=== PATIENT | male | born 1990 | race Caucasian/White ===

== ENCOUNTER 2021-11-03 11:03 | Emergency (ER) | payer OTHER, SELFPAY ==
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
[2021-11-03 11:44] VITALS: BP 131/78; BP 132/88; PULSE 86; PULSE 87; RESP 18; TEMP 36.8; O2SAT 99; BMI 23.7
[2021-11-03 12:53] LABS: MANUAL DIFF FLAG NO
[2021-11-03 12:53] LABS: COVID-19 Test Negative (Negative); IDNOW Serial# 16C4AD1C
[2021-11-03 12:54] LABS: Basophils Percent Auto 0.4 % (0-2); Eosinophils Absolute Auto 0.1 X10*3/uL (0.0-0.4); Eosinophils Percent Auto 1.6 % (0-4); Hematocrit 45.8 % (42.0-52.0); Hemoglobin 15.6 g/dl (14.0-18.0); Imm Gran Abs Auto 0.03 X10*3/uL (0.00-0.03); Imm Gran Pct Auto 0.4 % (0.0-0.4); Lymphocytes Absolute Auto 1.3 X10*3/uL (1.2-4.9); Lymphocytes Percent Auto 16.5 % (20-40); Mean Corpuscular HGB Conc 34.1 g/dl (31.0-36.0); Mean Corpuscular Hemoglobin 31.1 pg (27.0-33.0); Mean Corpuscular Volume 91.4 fL (80.0-98.0); Mean Platelet Volume 11.2 fL (9.4-12.4); Monocytes Absolute Auto 0.7 X10*3/uL (0.1-1.2); Monocytes Percent Auto 9.7 % (2-11); Neutrophils Absolute Auto 5.5 x10*3/uL (2.0-8.3); Neutrophils Percent Auto 71.4 % (45-73); Platelet Count 208 X10*3/uL (160-400); Red Blood Count 5.01 X10*6/uL (4.60-5.80); Red Cell Distribution Width 12.2 % (11.0-16.0); White Blood Count 7.6 X10*3/uL (4.8-10.8)
[2021-11-03 12:54] LABS: Amphetamine Screen Urine Not Detected (Not Detect); Barbiturates, Urine Not Detected (Not Detect); Benzodiazepines Screen Urine Not Detected (Not Detect); Cannabinoid Screen Urine POSITIVE (Not Detect); Cocaine Screen Urine POSITIVE (Not Detect); Fentanyl, urine Not Detected (Not Detect); Opiate Screen Urine Not Detected (Not Detect); Phencyclidine Screen Urine Not Detected (Not Detect)
--- NOTE | 2021-11-03 13:19 | PC.NURSE ---
client overheard laughing to self, no one in near proximity
[2021-11-03 15:35] LABS: Ethanol < 10 mg/dL
[2021-11-03 15:38] LABS: Alanine Aminotransferase 21 U/L (0-40); Albumin Level 4.7 g/dL (3.5-5.0); Alkaline Phosphatase 74 U/L (39-117); Anion Gap 11 (12-20); Aspartate Amino Transferase 28 U/L (5-37); Bilirubin Total 0.4 mg/dL (0.0-1.0); Blood Urea Nitrogen 15 mg/dL (9-16); Calcium 9.4 mg/dL (8.4-10.2); Carbon Dioxide 25 mmol/L (22-29); Chloride 103 mmol/L (96-108); Creatinine Clr Calc Pharmacy 112.7; Estimated Glomerular Filt Rate > 60; Glucose Fasting 96 mg/dL (60-99); Potassium 4.3 mmol/L (3.3-5.1); Sodium 135 mmol/L (135-145); Total Protein 8.6 g/dL (6.5-8.0)
== END 2021-11-03 20:48 | disposition home or self-care (01) ==
PROVIDERS: Emergency Provider Emergency Medicine
DX: F43.20 Adjustment disorder, unspecified (principal); R46.2 Strange and inexplicable behavior; R45.6 Violent behavior; F19.10 Other psychoactive substance abuse, uncomplicated; Z20.822 Contact with and (suspected) exposure to COVID-19
CPT/HCPCS: 36415; 80053; 80307; 82077; 85025; 87635; 99284

== ENCOUNTER 2022-05-24 19:34 | Emergency (ER) | payer OTHER, SELFPAY ==
[2022-05-24 19:54] VITALS: BP 111/69; PULSE 99; RESP 20; TEMP 36.6; O2SAT 100; BMI 21.4
--- NOTE | 2022-05-24 19:57 | ED.GENADULT ---
HPI - General Adult General Chief complaint: Weakness <BRYCE Rowland - Last Filed: 05/24/22 19:58> Stated complaint: bilateral leg pain, dehydration <BRYCE Rowland - Last Filed: 05/24/22 19:58> Time Seen by Provider: 05/24/22 22:47 <BRYCE Rowland - Last Filed: 05/24/22 19:58> Source: patient <Robert Hooper MD - Last Filed: 05/25/22 00:48> Mode of arrival: ambulatory <Robert Hooper MD - Last Filed: 05/25/22 00:48> Limitations: no limitations <Robert Hooper MD - Last Filed: 05/25/22 00:48> History of Present Illness HPI narrative: patient history of cocaine abuse comes here for increased weakness and muscular pain for last few days patient was triaged and labs were done prior to my evaluation which shows normal labs including CPK patient was sleeping while examining not in any distress no swelling of extremities noticed no IVDA track juares no fever no chills <Robert Hooper MD - Last Filed: 05/25/22 00:48> Related Data Home medications: Home Medications Medication Instructions Recorded Confirmed No Known Home Meds 11/03/21 11/03/21 <BRYCE Rowland - Last Filed: 05/24/22 19:58> Allergies/adverse reactions: Allergies Allergy/AdvReac Type Severity Reaction Status Date / Time SEAFOOD Allergy Mild SWELLING Uncoded 12/27/19 16:25 <BRYCE Rowland - Last Filed: 05/24/22 19:58> Review of Systems Review of Systems: Yes all other systems are reviewed and are negative <Robert Hooper MD - Last Filed: 05/25/22 00:48> PMFSH Past Medical History Medical History: Medical History Bizarre behavior Substance abuse <BRYCE Rowland - Last Filed: 05/24/22 19:58> Social History Social History: Social History Advance Directives: No Advance Directives Information Provided: No <BRYCE Rowland - Last Filed: 05/24/22 19:58> Physical Exam ED Vital Signs: Vital Signs - 24 hr 05/24/22 19:54 05/24/22 21:42 05/24/22 23:27 Temperature 97.9 F 98.7 F 98.1 F Pulse Rate 99 92 70 Respiratory Rate 20 16 14 Blood Pressure 111/69 110/70 96/62 Pulse Oximetry 100 97 96 Oxygen Delivery Method Room Air Room Air Room Air BMI result Body Mass Index 21.4 <BRYCE Rowland - Last Filed: 05/24/22 19:58> Vital Signs - 24 hr 05/24/22 19:54 05/24/22 21:42 05/24/22 23:27 Temperature 97.9 F 98.7 F 98.1 F Pulse Rate 99 92 70 Respiratory Rate 20 16 14 Blood Pressure 111/69 110/70 96/62 Pulse Oximetry 100 97 96 Oxygen Delivery Method Room Air Room Air Room Air BMI result Body Mass Index 21.4 <Robert Hooper MD - Last Filed: 05/25/22 00:48> Appearance: Alert. Oriented X3. No acute distress. Eyes: PERRLA, No Nystagmus ENT: Pharynx normal. Oral Mucosa moist Neck: Normal inspection. Neck supple. CVS: Normal heart rate and rhythm. Pulses normal. Respiratory: No respiratory distress. Equal air entry bilateral, no wheezing/rales/rhonchi Abdomen: Soft and nontender. Bowel sounds are present, no mass palpable, no CVA tenderness Skin: Skin warm and dry. Normal skin color. Normal skin turgor. Extremities: No lower extremity edema. No calf tenderness Neuro: Oriented X 3. No motor deficit. No sensory deficit.No cerebellar signs , cranial nerves II-XII intact <Robert Hooper MD - Last Filed: 05/25/22 00:48> Course Course Course Narrative: RME - 31 yo male presents to the ER with LE weakness, blurred vision, dry mouth for the last 2 days. Feels dehydrated with decreased PO intake. Hx substance abuse but has not used due to feeling unwell. Basic labs and viral studies ordered. Steady gait in and out of triage. <BRYCE Rowland - Last Filed: 05/24/22 19:58> Medications Administered Discontinued Medications Generic Name Dose Route Start Last Admin Trade Name Freq PRN Reason Stop Dose Admin Ibuprofen 600 mg 05/24/22 23:40 05/24/22 23:52 Ibuprofen 600 Mg Tablet PO 05/24/22 23:41 Not Given ONCE ONE <BRYCE Rowland - Last Filed: 05/24/22 19:58> Medications Administered Discontinued Medications Generic Name Dose Route Start Last Admin Trade Name Freq PRN Reason Stop Dose Admin Ibuprofen 600 mg 05/24/22 23:40 05/24/22 23:52 Ibuprofen 600 Mg Tablet PO 05/24/22 23:41 Not Given ONCE ONE <Robert Hooper MD - Last Filed: 05/25/22 00:48> Medical Decision Making Medical Decision Making MDM Narrative: with nonspecific complaints CPK normal no signs of rhabdomyolysis labs are stable will discharge patient home advised to drink plenty of fluid take Advil/Tylenol for pain <Robert Hooper MD - Last Filed: 05/25/22 00:48> Lab Data [facility] Lab Attestation statement: I reviewed the patient's lab results. <Robert Hooper MD - Last Filed: 05/25/22 00:48> Result Diagrams: 05/24/22 21:07 05/24/22 21:07 <BRYCE Rowland - Last Filed: 05/24/22 19:58> Labs: Lab Results 05/24/22 05/24/22 05/24/22 Range/Units 21:07 21:07 21:07 WBC 11.1 H (4.8-10.8) X10*3/uL RBC 4.57 L (4.60-5.80) X10*6/uL Hgb 14.0 (14.0-18.0) g/dl Hct 41.7 L (42.0-52.0) % MCV 91.2 (80.0-98.0) fL MCH 30.6 (27.0-33.0) pg MCHC 33.6 (31.0-36.0) g/dl RDW 12.3 (11.0-16.0) % Plt Count 257 (160-400) X10*3/uL MPV 10.5 (9.4-12.4) fL Immature Gran % (Auto) 0.2 (0.0-0.4) % Neut % (Auto) 72.1 (45-73) % Lymph % (Auto) 16.9 L (20-40) % Lanier % (Auto) 8.2 (2-11) % Eos % (Auto) 2.1 (0-4) % Baso % (Auto) 0.5 (0-2) % Lymph # (Auto) 1.9 (1.2-4.9) X10*3/uL Lanier # (Auto) 0.9 (0.1-1.2) X10*3/uL Eos # (Auto) 0.2 (0.0-0.4) X10*3/uL Baso # (Auto) 0.1 (0.0-0.2) X10*3/uL Abs Immat Gran (auto) 0.02 (0.00-0.03) X10*3/uL Absolute Neuts (auto) 8.0 (2.0-8.3) x10*3/uL Absolute Nucleated RBC 0.000 (0.0-0.012) X10*3/uL Nucleated RBC % (auto) 0.0 (0.0-0.2) /100WBC Sodium 141 (135-145) mmol/L Potassium 4.0 (3.3-5.1) mmol/L Chloride 104 (96-108) mmol/L Carbon Dioxide 28 (22-29) mmol/L Anion Gap 13 (12-20) BUN 16 (9-16) mg/dL Creatinine 0.89 (0.5-1.4) mg/dL Estim Creat Clear Calc 112.9 Estimated GFR > 60 Random Glucose 76 (60-115) mg/dL Calcium 9.4 (8.4-10.2) mg/dL Magnesium 2.0 (1.6-2.6) mg/dL Total Bilirubin 0.3 (0.0-1.0) mg/dL Direct Bilirubin < 0.2 (0.0-0.5) mg/dL AST 23 (5-37) U/L ALT 20 (0-40) U/L Alkaline Phosphatase 70 (39-117) U/L Total Creatine Kinase 129 (38-174) U/L Total Protein 7.4 (6.5-8.0) g/dL Albumin 3.8 (3.5-5.0) g/dL COVID-19 (BRANDON) (Negative) COVID-19 Clin Com Influenza Type A (CHITRA) Negative (Negative) Influenza Type B (CHITRA) Negative (Negative) Influenza A & B Note See Note 05/24/22 Range/Units 21:07 WBC (4.8-10.8) X10*3/uL RBC (4.60-5.80) X10*6/uL Hgb (14.0-18.0) g/dl Hct (42.0-52.0) % MCV (80.0-98.0) fL MCH (27.0-33.0) pg MCHC (31.0-36.0) g/dl RDW (11.0-16.0) % Plt Count (160-400) X10*3/uL MPV (9.4-12.4) fL Immature Gran % (Auto) (0.0-0.4) % Neut % (Auto) (45-73) % Lymph % (Auto) (20-40) % Lanier % (Auto) (2-11) % Eos % (Auto) (0-4) % Baso % (Auto) (0-2) % Lymph # (Auto) (1.2-4.9) X10*3/uL Lanier # (Auto) (0.1-1.2) X10*3/uL Eos # (Auto) (0.0-0.4) X10*3/uL Baso # (Auto) (0.0-0.2) X10*3/uL Abs Immat Gran (auto) (0.00-0.03) X10*3/uL Absolute Neuts (auto) (2.0-8.3) x10*3/uL Absolute Nucleated RBC (0.0-0.012) X10*3/uL Nucleated RBC % (auto) (0.0-0.2) /100WBC Sodium (135-145) mmol/L Potassium (3.3-5.1) mmol/L Chloride (96-108) mmol/L Carbon Dioxide (22-29) mmol/L Anion Gap (12-20) BUN (9-16) mg/dL Creatinine (0.5-1.4) mg/dL Estim Creat Clear Calc Estimated GFR Random Glucose (60-115) mg/dL Calcium (8.4-10.2) mg/dL Magnesium (1.6-2.6) mg/dL Total Bilirubin (0.0-1.0) mg/dL Direct Bilirubin (0.0-0.5) mg/dL AST (5-37) U/L ALT (0-40) U/L Alkaline Phosphatase (39-117) U/L Total Creatine Kinase (38-174) U/L Total Protein (6.5-8.0) g/dL Albumin (3.5-5.0) g/dL COVID-19 (BRANDON) Negative (Negative) COVID-19 Clin Com See Note Influenza Type A (CHITRA) (Negative) Influenza Type B (CHITRA) (Negative) Influenza A & B Note <BRYCE Rowland - Last Filed: 05/24/22 19:58> Lab Results 05/24/22 05/24/22 05/24/22 Range/Units 21:07 21:07 21:07 WBC 11.1 H (4.8-10.8) X10*3/uL RBC 4.57 L (4.60-5.80) X10*6/uL Hgb 14.0 (14.0-18.0) g/dl Hct 41.7 L (42.0-52.0) % MCV 91.2 (80.0-98.0) fL MCH 30.6 (27.0-33.0) pg MCHC 33.6 (31.0-36.0) g/dl RDW 12.3 (11.0-16.0) % Plt Count 257 (160-400) X10*3/uL MPV 10.5 (9.4-12.4) fL Immature Gran % (Auto) 0.2 (0.0-0.4) % Neut % (Auto) 72.1 (45-73) % Lymph % (Auto) 16.9 L (20-40) % Lanier % (Auto) 8.2 (2-11) % Eos % (Auto) 2.1 (0-4) % Baso % (Auto) 0.5 (0-2) % Lymph # (Auto) 1.9 (1.2-4.9) X10*3/uL Lanier # (Auto) 0.9 (0.1-1.2) X10*3/uL Eos # (Auto) 0.2 (0.0-0.4) X10*3/uL Baso # (Auto) 0.1 (0.0-0.2) X10*3/uL Abs Immat Gran (auto) 0.02 (0.00-0.03) X10*3/uL Absolute Neuts (auto) 8.0 (2.0-8.3) x10*3/uL Absolute Nucleated RBC 0.000 (0.0-0.012) X10*3/uL Nucleated RBC % (auto) 0.0 (0.0-0.2) /100WBC Sodium 141 (135-145) mmol/L Potassium 4.0 (3.3-5.1) mmol/L Chloride 104 (96-108) mmol/L Carbon Dioxide 28 (22-29) mmol/L Anion Gap 13 (12-20) BUN 16 (9-16) mg/dL Creatinine 0.89 (0.5-1.4) mg/dL Estim Creat Clear Calc 112.9 Estimated GFR > 60 Random Glucose 76 (60-115) mg/dL Calcium 9.4 (8.4-10.2) mg/dL Magnesium 2.0 (1.6-2.6) mg/dL Total Bilirubin 0.3 (0.0-1.0) mg/dL Direct Bilirubin < 0.2 (0.0-0.5) mg/dL AST 23 (5-37) U/L ALT 20 (0-40) U/L Alkaline Phosphatase 70 (39-117) U/L Total Creatine Kinase 129 (38-174) U/L Total Protein 7.4 (6.5-8.0) g/dL Albumin 3.8 (3.5-5.0) g/dL COVID-19 (BRANDON) (Negative) COVID-19 Clin Com Influenza Type A (CHITRA) Negative (Negative) Influenza Type B (CHITRA) Negative (Negative) Influenza A & B Note See Note 05/24/22 Range/Units 21:07 WBC (4.8-10.8) X10*3/uL RBC (4.60-5.80) X10*6/uL Hgb (14.0-18.0) g/dl Hct (42.0-52.0) % MCV (80.0-98.0) fL MCH (27.0-33.0) pg MCHC (31.0-36.0) g/dl RDW (11.0-16.0) % Plt Count (160-400) X10*3/uL MPV (9.4-12.4) fL Immature Gran % (Auto) (0.0-0.4) % Neut % (Auto) (45-73) % Lymph % (Auto) (20-40) % Lanier % (Auto) (2-11) % Eos % (Auto) (0-4) % Baso % (Auto) (0-2) % Lymph # (Auto) (1.2-4.9) X10*3/uL Lanier # (Auto) (0.1-1.2) X10*3/uL Eos # (Auto) (0.0-0.4) X10*3/uL Baso # (Auto) (0.0-0.2) X10*3/uL Abs Immat Gran (auto) (0.00-0.03) X10*3/uL Absolute Neuts (auto) (2.0-8.3) x10*3/uL Absolute Nucleated RBC (0.0-0.012) X10*3/uL Nucleated RBC % (auto) (0.0-0.2) /100WBC Sodium (135-145) mmol/L Potassium (3.3-5.1) mmol/L Chloride (96-108) mmol/L Carbon Dioxide (22-29) mmol/L Anion Gap (12-20) BUN (9-16) mg/dL Creatinine (0.5-1.4) mg/dL Estim Creat Clear Calc Estimated GFR Random Glucose (60-115) mg/dL Calcium (8.4-10.2) mg/dL Magnesium (1.6-2.6) mg/dL Total Bilirubin (0.0-1.0) mg/dL Direct Bilirubin (0.0-0.5) mg/dL AST (5-37) U/L ALT (0-40) U/L Alkaline Phosphatase (39-117) U/L Total Creatine Kinase (38-174) U/L Total Protein (6.5-8.0) g/dL Albumin (3.5-5.0) g/dL COVID-19 (BRANDON) Negative (Negative) COVID-19 Clin Com See Note Influenza Type A (CHITRA) (Negative) Influenza Type B (CH[facility]RA) (Negative) Influenza A & B Note <Robert Hooper MD - Last Filed: 05/25/22 00:48> Discharge Plan Discharge Clinical Impression: Myalgia <BRYCE Rowland - Last Filed: 05/24/22 19:58> Patient Disposition: Home, Self-Care <BRYCE Rowland - Last Filed: 05/24/22 19:58> Instructions: Musculoskeletal Pain (ED) <BRYCE Rowland - Last Filed: 05/24/22 19:58> Additional Instructions: Tylenol/Motrin for pain drink plenty of fluids <BRYCE Rowland - Last Filed: 05/24/22 19:58> Prescriptions: No Action No Known Home Meds <BRYCE Rowland - Last Filed: 05/24/22 19:58> Interventions: ED Discharge Assessment Last Done: 05/24/22 23:52 <BRYCE Rowland - Last Filed: 05/24/22 19:58> Discharge Date/Time: 05/24/22 23:53 <BRYCE Rowland - Last Filed: 05/24/22 19:58>
--- NOTE | 2022-05-24 21:11 | MHC.EDTECH ---
pt blood drawn and covid and flu swab done and send to lab .
[2022-05-24 21:13] LABS: MANUAL DIFF FLAG NO
[2022-05-24 21:15] LABS: Basophils Absolute Auto 0.1 X10*3/uL (0.0-0.2); Basophils Percent Auto 0.5 % (0-2); Eosinophils Absolute Auto 0.2 X10*3/uL (0.0-0.4); Eosinophils Percent Auto 2.1 % (0-4); Hematocrit 41.7 % (42.0-52.0); Imm Gran Abs Auto 0.02 X10*3/uL (0.00-0.03); Imm Gran Pct Auto 0.2 % (0.0-0.4); Lymphocytes Absolute Auto 1.9 X10*3/uL (1.2-4.9); Lymphocytes Percent Auto 16.9 % (20-40); Mean Corpuscular HGB Conc 33.6 g/dl (31.0-36.0); Mean Corpuscular Hemoglobin 30.6 pg (27.0-33.0); Mean Corpuscular Volume 91.2 fL (80.0-98.0); Mean Platelet Volume 10.5 fL (9.4-12.4); Monocytes Absolute Auto 0.9 X10*3/uL (0.1-1.2); Monocytes Percent Auto 8.2 % (2-11); Neutrophils Percent Auto 72.1 % (45-73); Platelet Count 257 X10*3/uL (160-400); Red Blood Count 4.57 X10*6/uL (4.60-5.80); Red Cell Distribution Width 12.3 % (11.0-16.0); White Blood Count 11.1 X10*3/uL (4.8-10.8)
[2022-05-24 21:26] LABS: IDNOW Serial# BCCEAD1C; Influenza A Negative (Negative); Influenza B2 Negative (Negative)
[2022-05-24 21:27] LABS: COVID-19 Test Negative (Negative); IDNOW Serial# 16C4AD1C
[2022-05-24 21:32] LABS: Alanine Aminotransferase 20 U/L (0-40); Albumin Level 3.8 g/dL (3.5-5.0); Alkaline Phosphatase 70 U/L (39-117); Anion Gap 13 (12-20); Aspartate Amino Transferase 23 U/L (5-37); Bilirubin Direct < 0.2 mg/dL (0.0-0.5); Bilirubin Total 0.3 mg/dL (0.0-1.0); Blood Urea Nitrogen 16 mg/dL (9-16); Calcium 9.4 mg/dL (8.4-10.2); Carbon Dioxide 28 mmol/L (22-29); Chloride 104 mmol/L (96-108); Creatinine Clr Calc Pharmacy 112.9; Estimated Glomerular Filt Rate > 60; Glucose Random 76 mg/dL (60-115); Sodium 141 mmol/L (135-145); Total Protein 7.4 g/dL (6.5-8.0)
[2022-05-24 21:42] VITALS: BP 110/70; PULSE 92; RESP 16; TEMP 37.1; O2SAT 97
[2022-05-24 23:27] VITALS: BP 96/62; PULSE 70; RESP 14; TEMP 36.7; O2SAT 96
== END 2022-05-24 23:53 | disposition home or self-care (01) ==
PROVIDERS: Physician Assistant; Emergency Provider Internal Medicine; PCP Internal Medicine
DX: M79.10 Myalgia, unspecified site (principal); Z20.822 Contact with and (suspected) exposure to COVID-19; F14.10 Cocaine abuse, uncomplicated; F19.10 Other psychoactive substance abuse, uncomplicated
CPT/HCPCS: 36415; 80048; 80076; 82550; 83735; 85025; 87502; 87635; 99283; 99284

== ENCOUNTER 2023-01-29 04:02 | Emergency (ER) | payer OTHER, SELFPAY ==
[2023-01-29 04:04] VITALS: BP 143/86; PULSE 106; RESP 18; TEMP 36.6; O2SAT 99; BMI 41.7
--- OUTSIDE RECORDS SUMMARY | 2023-01-29 06:43 | XMS_ITS | Continuity of Care Document ---
Author Name Unknown Organization [facility] ter Address [address] [place] [id number]- Care Team Providers Care Pediatrician Name Role Phone Not on Staff, PCP Primary Care Physician Unavail able Encounter [facility] Date(s): 10/24/22 - 10/26/[address] [address]- Encounter Diagnosis Sotero(Final) - 10/24/22 Agitation(Final) - 10/26/22 Discharge Disposition: A-D/C Home Attending Physician: Anel Liu MD Admitting Physician: Anel Liu MD Referring Physician: Not on Staff, Referring MD Allergies, Adverse Reactions, Alerts Substance Reaction Severity Status Seafood Active Immunizations Given and Recorded Vaccine Date Status Refusal Reason influenza virus vaccine, inactivated 1 12/28/17 Gi jody influenza virus vaccine, inactivated 2 04/16/15 Gi jody pneumococcal 23-valent vaccine 12/28/17 Given pneumococcal 23-valent vaccine 12/07/11 Given Prevnar (oldterm) 04/16/15 Given tetanus/diphtheria/pertussis, acel(Tdap) 09/24/14 Recorded hepatitis B adult vaccine 11/10/11 Given Hepatitis B Vaccine (old term) 3 08/25/11 Given Hepatitis B Vaccine (old term) 04/21/11 Given 1Admin Note: Flucelvax Quadrivalent 2Admin Note: Flucelvax 3Admin Note: #2 Medications clotrimazole topical 1% cream 1 application, Topically, 2 times a day, Apply to bilateral groin areas with rash, # 45 Gm, 0 Refills, Maintenance, Cream Start Date: 03/18/11 Status: Ordered Genvoya oral tablet 1 tablet, By Mouth, Daily, with food, # 30 tablet, 5 Refills, Maintenance, 06/13/18 7:23:51 EST, Tablet, 1 tablet By Mouth Daily,Instr:with food Start Date: 06/13/18 Status: Ordered Lotrimin AF Jock Itch 1% topical cream 1 application, Topically, 2 times a day, Apply to affected area- right wrist, # 12 Gm, 0 Refills, Maintenance, Cream Start Date: 03/01/12 Status: Ordered podofilox 0.5% topical gel See Instructions, Appy to warts 2 times a day for 3 days, no therapy for 4 days ; can use up to 4 such cycles., # 3.5 mL, 1 Refills, Maintenance, 04/16/15 8:23:35, Appy to warts 2 times a day for 3 days, no therapy for 4 days ; can use up to 4 such... 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 COMPARISON: None. FINDINGS: Hair Assistant view findings, lines and tubes: None. BRAIN AND EXTRA-AXIAL SPACES: No parenchymal hemorrhage, midline shift, or mass effect. Schaeffer-white matter differentiation is wellpreserved. No acute infarct. Ventricles, sulci, and basilar cisterns are normal. No white matter lesions. No subarachnoid hemorrhage. No subdural or epidural collection. CALVARIUM, SKULL BASE, AND SOFT TISSUES: No fractures or suspicious bony lesions. The paranasal sinuses and mastoid air cells are clear. Visualized orbits and globes are intact. The extracranial soft tissues are unremarkable. IMPRESSION: No acute intracranial pathology. WSN: [id number] Ordering Physician: Arnoldo Cuellar Dictated By: Bal Sinclair MD Dictated Date/Time: 10/24/22 9:55 pm Reviewed By: Bal Sinclair MD Signed By: Bal Sinclair MD Signed Date/Time: 10/24/22 9:55 pm Transcribed By: NEGRA Transcribed Date/Time: 10/24/22 9:52 pm Vital Signs Most recent to oldest [Reference Range]: 1 2 3 Oxygen Saturation [94-100 %] 100 % (10/26/22 8:54 AM) 95 % (10/26/22 12:27 AM) 99 % (10/25/22 7:58 PM) Pulse Rate [55-90 bpm] 86 bpm (10/26/22 8:54 AM) 95 bpm *H* (10/26/22 12:27 AM) 96 bpm *H* (10/25/22 7:58 PM) Blood Pressure [90-138/55-84 mm Hg] 98/62mm Hg (10/26/22 8:54 AM) 102/52mm Hg (10/26/22 12:27 AM) 90/39mm Hg (10/25/22 7:58 PM) Respiratory Rate [16-30 br/min] 15 br/min *L* (10/26/22 8:54 AM) 20 br/min (10/26/22 12:27 AM) 13 br/min *L* (10/25/22 7:58 PM) Temperature [96.8-100.4 DegF] 98.5 DegF (10/26/22 8:54 AM) 98.4 DegF (10/26/22 12:27 AM) 98.9 DegF (10/25/22 7:58 PM) Mode of Delivery (Oxygen) Room air (10/26/22 8:54 AM) Room air (10/26/22 12:27 AM) Room air (10/25/22 7:58 PM) Blood pressure sites Arm, left (10/26/22 8:54 AM) Arm, left (10/26/22 12:27 AM) Temperature Route Oral (10/26/22 8:54 AM) Oral (10/26/22 12:27 AM) Oral (10/25/22 7:58 PM) Social History Social History Type Response Smoking Status Current every day sm oker; Tobacco user in household: No entered on: 6/4/14 Sex Note * Tramaine Chao MD: PERFORM Event Display: Patient Education Leaflets Authored Date: [id number] Psychosis ?? [id number] Psychosis Psychosis is a serious symptom of certain mental health problems. It also can be caused by some physical disease, traumatic experiences, or drugs and toxins. Psychosis involves perceiving reality differently from those around you. The difference between reality and what you think is reality becomesblurred in your mind. There are different kinds of psychosis, depending on the cause: ??? Health problems such as infections, thyroid disorders, some cancers, sleep deprivation, low or high blood sugar levels, or dementia ??? Drug-induced from drugs such as alcohol, methamphetamine, cocaine, LSD, or PCP ??? Bipolar disorder ??? Depression ??? Schizophrenia Symptoms The symptoms of psychosis may not all be the same for each person. But they usually involve: ??? Hallucinations. Seeing, hearing, feeling, or even tasting or smelling things that are not there. ??? Delusions.??Believing something that's not true, or false beliefs that are not part of a person's catholic or cultural background. There may also be disturbances in thinking, speech, and behavior. These can include: ??? Hearing voices that others don't hear ??? Seeing things that others don't see ??? Racing thoughts ??? Lack of energy ??? Feeling very fearful ??? Disorganized speech ??? Intentional or unintentional bodily harm to others ??? Paranoia ??? Trouble thinking or concentrating clearly ??? Depression,feeling suicidal ??? Insomnia ??? Withdrawal from those around you Treatment for psychosis depends on the cause. Medicine is often used, with or without psychotherapy. You may need to stay in the hospital. This is to protect you and to carefully monitor medicines. ?? Home care ??? Find a healthcare provider and therapist who meet your needs. Seek help when you feellike your symptoms are returning. ??? Be sure to take your medicine as directed even if you think you don't need it. Never stop your medicine or change the dose without talking with your provider. Never use another person's medicine. ??? If you have trouble paying for your prescription, let your providers know so they can help you find resources. ??? Talk with your family about your feelings and thoughts. Ask them to help you recognize any behavior changes so you can get help and, if needed, medicines can be adjusted. ??? Contact your provider if you feel like your medicine is not working and changes need to be made. ?? Follow-up care is critical It's important to manage your condition by staying in close and regular contact with your healthcare team. Always follow up with your counselor, therapist, or psychiatrist as advised. Don't skip taking your medicine or change it without talking with your healthcare team. Take it as directed even if you think you don't need it. Also: ??? Be certain to tell each of your healthcare providers about all of the prescription medicines, ssbx-rbg-qizksem medicines, illegal drugs, vitamins, and supplements you take.??Certain supplements interact with medicines. This can result in dangerous side effects.??Ask your pharmacist when you have questions about drug interactions. Tell your provider if you use alcohol and, if you do, howoften and how much you drink. ??? Tell your healthcare provider about all your medical conditions and any recent illnesses, such as infections. ??? Follow-up with lab tests as advised by your healthcare provider. Lab work is very important and can tell your provider the blood level of certain medicines. They can see if your dose needs to be increased or decreased. ?? Crisis care If you or the person is at immediate risk, call or text the National Suicide Lifeline at 988. Or call emergency services at 911. You will be connected to trained crisis counselors. An online chat option is also available. Lifeline is free and available 01/11. The Lifeline will work together with [facility] to make sure you get the care you need. Call 988 if you: ??? Have suicidal thoughts, a suicide plan, and the means to carry out the plan ??? Hear voices that are telling you to harm yourself or others ??? Have trouble breathing ??? Are very confused ??? Are very drowsy or have trouble awakening ??? Faint or lose??consciousness ??? Have arapid heart rate, very low heart rate, or a new irregular heart rate ??? Have a seizure ?? When to seek medical advice Call your healthcare provider right away if any of these occur: ??? Gradual or rapid return of psychotic symptoms ??? Feeling like you want to harm yourself or another ??? Feeling extremely depressed??? Feeling very anxious, agitated, or angry ??? Feeling out of control or being controlled by others ??? Unable to care for yourself ??? Seeing things or hearing voices that you know aren't real ?? Last Reviewed Date: 2021 ?? [id number] [employer]. All rights reserved. This information is not intended as a substitute for professional medical care. Always follow your healthcare professional's instructions. ?? Patient Care team information Care Team Personnel Name: Not on Staff, PCP Position: [facility] Physician (General Medicine) Member Role: PCP Name: *[facility], ED Attending Position: [facility] ED Attendings Patient Name: Renetta Tiwari RN Position: [facility] ED RN W/OE and Tasks Member Role: Patient Care Provider Name: Tramaine Chao MD Position: [facility] ED Medicine MD Member Role: ED Physician Address: Address: [address] [place] [address] [place] [address]- Name: Dieter Millan Position: [facility] ED TA [facility] Care Team Related Persons Name: NACHO DELGADO Address: home [address] [place] [id number]
--- OUTSIDE RECORDS SUMMARY | 2023-01-29 06:43 | XMS_ITS | Continuity of Care Document ---
Author Name Unknown Organization [facility] Address [address] [place] [address]- Care Team Providers Care Commercial Retoucher Name Role Phone Abena HAUSER, Tyler Salinas Primary Care Physician [phone] Encounter [facility] Date(s): 07/07/22 - 09/11/22 [facility] [address] [place] [id number] Attending Physician: Ike HAUSER, Varinder Abrams Admitting Physician: Varinder Ramires MD Referring Physician: Kevon Kingsley MD Allergies, Adverse Reactions, Alerts Substance Reaction [...] 4 such... Start Date: 04/16/15 Status: Ordered Social History Social History Type Response Smoking Status Current every day sm oker; Tobacco user in household: No entered on: 09/12/13 Sex Patient Care team information Care Team Personnel Name: Tyler Kraft MD Position: [facility] Physician (General Medicine) Member Role: PCP Address: Address: [address] [place] [address]- Care Team Related Persons Name: NACHO DELGADO Address: home [address] [place] [address]
--- OUTSIDE RECORDS SUMMARY | 2023-01-29 06:43 | XMS_ITS | Continuity of Care Document ---
Author Name Unknown Organization [facility] Address [address] [place] [address]- Care Team Providers Care Line Maintainer Name Role Phone Tyler Kraft MD Primary Care Physician Encounter [facility] Date(s): 08/12/22 - 09/11/22 [facility] [address] [place] [id number] Attending Physician: Morgan Jones Admitting Physician: Morgan Jones Referring Physician: AdmtrMorgan Allergies, Adverse Reactions, Alerts Substance Reaction Severity [...] in household: No entered on: 09/12/13 Sex Laboratory * Event Display: Non Lab Results Authored Date: [id number] * Jennifer Jacobson: PERFORM Event Display: Laboratory Results Scanned Authored Date: [id number] * Lorena Ratliff: PERFORM Event Display: Laboratory Results Scanned Authored Date: [id number] Patient Care team information Care Team Personnel Name: Abena HAUSER, Tyler Salinas Position: [facility] Physician (General Medicine) Member Role: PCP Address: Address: [address] [place] [address]- Care Team Related Persons Name: NACHO DELGADO Address: home [address] [place] [id number]
--- OUTSIDE RECORDS SUMMARY | 2023-01-29 06:43 | XMS_ITS | Continuity of Care Document ---
Author Name Unknown Organization [facility] ter Address [address] [place] [address]- Care Team Providers Care National Stormwater Leader Name Role Phone Not on Staff, PCP Primary Care Physician Unavail able Encounter [facility] Date(s): 01/15/23 - 01/16/[address] [address]- Discharge Disposition: A-D/C Walkout Attending Physician: Not on Staff, Attending MD Admitting Physician: Not on Staff, Admitting MD Referring Physician: Not on Staff, Referring [...] 4 such... Start Date: 04/16/15 Status: Ordered Vital Signs Most recent to oldest [Reference Range]: 1 2 Height 175 cm (01/15/23 7:45 PM) Weight 63.0 kg (01/15/23 7:45 PM) Oxygen Saturation [94-100 %] 100 % (01/16/23 2:07 AM) 100 % (01/15/23:45 PM) Pulse Rate [55-90 bpm] 97 bpm *H* (01/16/23 2:07 AM) 112 bpm *H* (01/15/23 7:45 PM) Body Mass Index [18.5-24.99 kg/m2] 20.57 kg/m2 (01/15/23 7:45 PM) Blood Pressure [90-138/55-84 mm Hg] 119/ 79mm Hg (01/16/23 2:07 AM) 130/82mm Hg (01/15/23 7:45 PM) Respiratory Rate [16-30 br/min] 18 br/mi n (01/15/23 7:45 PM) Temperature [96.8-100.4 DegF] 98.2 DegF (01/16/23 2:07 AM) 98.3 DegF (01/15/23 7:45 PM) Mode of Delivery (Oxygen) Nasal cannula (01/16/23 2:07 AM) Room air (01/15/23 7:45 PM) Blood pressure sites Arm, left (01/16/23 2:07 AM) Arm, left (01/15/23 7:45 PM) Temperature Route Oral (01/16/23 2:07 AM) Oral (01/15/23 7:45 PM) Dry Weight 63.0 kg (01/15/23 7:45 PM) Weight Obtained Via Standing scale (01/15/23 7:45 PM) Dry Weight Obtained Via Standing scale (01/15/23 7:45 PM) Social History Social History Type Response Smoking Status Current every day alli hawkins; Tobacco user in household: No entered on: 09/12/13 Sex Patient Care team information Care Team Personnel Name: Not on Staff, PCP Position: S Physician (General Medicine) Member Role: PCP Care Team Related Persons Name: MARJ DELGADOETTE Address: home [address] [place] [address]
--- OUTSIDE RECORDS SUMMARY | 2023-01-29 06:43 | XMS_ITS | Continuity of Care Document ---
Author Name Unknown Organization [facility] ter Address [address] [place] [address]- Care Team Providers Care Title Curator Name Role Phone Tyler Kraft MD Primary Care Physician [phone] [place] [facility] [place] 12/11/21 - 12/11/[address] [address]- Discharge Disposition: A-D/C Home Attending Physician: Anel [...] vaccine 12/07/11 Given Prevnar (oldterm) 04/16/15 Given hepatitis B adult vaccine 11/10/11 Given Hepatitis B Vaccine (old term) 3 08/25/11 Given Hepatitis B Vaccine (old term) 04/21/11 Given 1Admin Note: Flucelvax Quadrivalent 2Admin Note: Flucelvax 3Admin Note: #2 Medications clotrimazole topical 1% cream 1 application, Topically, 2 times a day, Apply to bilateral groin areas with rash, # 45 Gm, 0 Refills, Maintenance, Cream Start Date: 03/18/11 Status: Ordered Flucelvax [id number] intramuscular suspension 0.5 mL, Intramuscular, Once, # 0.5 mL, 0 Refills, Soft Stop, 04/16/15 8:38:19 Start Date: 04/16/15 Status: Ordered GENVOYA GENVOYA, See Instructions, # 30 tablet, Refills 5, Tot. Refills 5, Maintenance, Take 1 tablet daily. Stop Atripla., 09/18/15 15:22:17, Compound Start Date: 09/18/15 Status: Ordered Genvoya oral tablet 1 tablet, By Mouth, Daily, with food, # 30 tablet, 5 Refills, Maintenance, 06/13/18 7:23:51 EST, Tablet, 1 tablet By Mouth Daily,Instr:with food Start Date: 06/13/18 Status: Ordered influenza virus vaccine - intramuscular suspension 0.25 mL, Intramuscular, Once, flucelvax quadrivalent, # 0.25 mL, 0 Refills, Soft Stop, 12/29/17 16:49:00 EDT, Suspension Start Date: 12/29/17 Status: Ordered Lotrimin AF Jock Itch 1% topical cream 1 application, Topically, 2 times a day, Apply to affected area- right wrist, # 12 Gm, 0 Refills, Maintenance, Cream Start Date: 03/01/12 Status: Ordered pneumococcal 23-polyvalent vaccine injectable solution 0.5 mL, Intramuscular, Once, # 0.5 mL, 0 Refills, Soft Stop, 12/29/17 16:49:00 EDT, Solution Start Date: 12/29/17 Status: Ordered podofilox 0.5% topical gel See [...] 4 such... Start Date: 04/16/15 Status: Ordered Prevnar 13 intramuscular suspension 0.5 mL, Intramuscular, Once, # 1 each, 0 Refills, Soft Stop, 04/16/15 8:38:18, Suspension Start Date: 04/16/15 Status: Ordered Vital Signs Most recent to oldest [Reference Range]: 1 2 3 Oxygen Saturation [94-100 %] 100 % (12/11/21 12:32 PM) 100 % (12/11/21 8:28 AM) 99 % (12/11/21 8:22 AM) Pulse Rate [55-90 bpm] 97 bpm *H* (12/11/21 12:32 PM) 110 bpm *H* (12/11/21 8:28 AM) Blood Pressure [90-138/55-84 mm Hg] 127/71mm Hg (12/11/21 12:32 PM) 118/71mm Hg (12/11/21 8:28 AM) Respiratory Rate [16-30 br/min] 17 br/min (12/11/21 8:28 AM) Temperature [96.8-100.4 DegF] 97.5 DegF (12/11/21 12:32 PM) 98.1 DegF (12/11/21 8:28 AM) Mode of Delivery (Oxygen) Room air (12/11/21 12:32 PM) Room air (12/11/21 8:28 AM) Room air (12/11/21 8:22 AM) Blood pressure sites Arm, right (12/11/21 12:32 PM) Arm, right (12/11/21 8:28 AM) Temperature Route Oral (12/11/21 12:32 PM) Oral (12/11/21 8:28 AM) Social History Social History Type Response Smoking Status Current every day sm oker; Tobacco user in household: No entered on: 09/12/13 Sex Care Team Personnel Name: Abena HAUSER, Tyler Salinas Address: [address] [place] [address]
--- NOTE | 2023-01-29 07:18 | ED.GENADULT ---
HPI - General Adult General Chief complaint: General Medical Stated complaint: Mental health issues Time Seen by Provider: 01/29/23 07:11 Source: patient Mode of arrival: ambulatory Limitations: no limitations History of Present Illness HPI narrative: Patient from sober home comes here because he is feeling foggy homeless nonspecific complaint was at [facility] for 7 hours left without being seen no fever no cough Related Data Home Medications Medication Instructions Recorded Confirmed No Known Home Meds 11/03/21 11/03/21 Allergies Allergy/AdvReac Type Severity Reaction Status Date / Time SEAFOOD Allergy Mild SWELLING Uncoded 01/29/23 04:11 Review of Systems Review of Systems: Yes all other systems are reviewed and are negative [facility] Past Medical History Medical History Bizarre behavior Substance abuse Social History Social History Advance Directives: No Advance Directives Information Provided: Yes Physical Exam ED Vital Signs: Vital Signs - 24 hr 01/29/23 04:04 01/29/23 09:51 Temperature 97.9 F 98.6 F Pulse Rate 106 H 89 Respiratory Rate 18 16 Blood Pressure 143/86 H 116/62 Pulse Oximetry 99 97 Oxygen Delivery Method Room Air Room Air BMI result Body Mass Index 41.7 Appearance: Alert. Oriented X3. No acute distress. Eyes: PERRLA, No Nystagmus ENT: Pharynx normal. Oral Mucosa moist Neck: Normal inspection. Neck supple. CVS: Normal heart rate and rhythm. Pulses normal. Respiratory: No respiratory distress. Equal air entry bilateral, no wheezing/rales/rhonchi Abdomen: Soft and nontender. Bowel sounds are present, no mass palpable, no CVA tenderness Skin: Skin warm and dry. Normal skin color. Normal skin turgor. Extremities: No lower extremity edema. No calf tenderness Neuro: Oriented X 3. No motor deficit. No sensory deficit.No cerebellar signs , cranial nerves II-XII intact Medical Decision Making Medical Decision Making MDM Narrative: Patient with nonspecific c/o denies cocaine use but urine is positive stable vitals with discharge patient home Lab Data [facility] Lab Attestation statement: I reviewed the patient's lab results. Labs: Lab Results 01/29/23 01/29/23 Range/Units 08:41 08:47 POC Glucose 88 (60-115) mg/dL Urine Color Yellow Urine Appearance Clear Urine pH 5.5 (5.0-9.0) Ur Specific [place] 1.025 (1.005-1.025) Urine Protein Negative (Neg-Trace) mg/dL Urine Glucose (UA) Negative (Negative) mg/dL Urine Ketones Negative (Negative) mg/dL Urine Blood Negative (Negative) Urine Nitrite Negative (Negative) Ur Leukocyte Esterase Negative (Negative) Urine Opiates Screen Not Detected (Not Detect) Urine Fentanyl Screen Not Detected (Not Detect) Ur Barbiturates Screen Not Detected (Not Detect) Ur Phencyclidine Scrn Not Detected (Not Detect) Ur Amphetamines Screen POSITIVE H (Not Detect) U Benzodiazepines Scrn Not Detected (Not Detect) Urine Cocaine Screen POSITIVE H (Not Detect) U Marijuana (THC) Screen POSITIVE H (Not Detect) Discharge Plan Discharge Clinical Impression: Polysubstance abuse Patient Disposition: Home, Self-Care Instructions: Polysubstance Abuse (ED) Additional Instructions: Stop using cocaine Follow-up with detox Prescriptions: No Action No Known Home Meds Interventions: ED Discharge Assessment Last Done: 01/29/23 09:59 Discharge Date/Time: 01/29/23 09:59
[2023-01-29 08:46] LABS: Glucose, Whole Blood 88 mg/dL (60-115)
[2023-01-29 09:02] LABS: Amphetamine Screen Urine POSITIVE (Not Detect); Barbiturates, Urine Not Detected (Not Detect); Benzodiazepines Screen Urine Not Detected (Not Detect); Cannabinoid Screen Urine POSITIVE (Not Detect); Cocaine Screen Urine POSITIVE (Not Detect); Fentanyl, urine Not Detected (Not Detect); Opiate Screen Urine Not Detected (Not Detect); Phencyclidine Screen Urine Not Detected (Not Detect)
[2023-01-29 09:05] LABS: Appearance Urine Clear; Color Urine Yellow; Glucose Urine UA Negative (Negative); Leukocyte Esterase Urine Negative (Negative); Nitrite Urine Negative (Negative); PH 5.5 (5.0-9.0); Specific Gravity - Urine 1.025 (1.005-1.025); Urine Blood Negative (Negative); Urine Ketones Negative (Negative); Urine Protein Negative (Neg-Trace)
[2023-01-29 09:51] VITALS: BP 116/62; PULSE 89; RESP 16; TEMP 37; O2SAT 97
== END 2023-01-29 09:59 | disposition home or self-care (01) ==
PROVIDERS: Emergency Provider Internal Medicine
DX: F19.10 Other psychoactive substance abuse, uncomplicated (principal); E66.9 Obesity, unspecified; Z68.41 Body mass index [BMI] 40.0-44.9, adult; Z59.00 Homelessness unspecified
CPT/HCPCS: 80307; 81003; 82947; 99283

== ENCOUNTER 2023-02-05 13:39 | Emergency (ER) | payer OTHER, SELFPAY ==
--- NOTE | ~2023-02-05 | CT_ITS ---
EXAMINATION: CT HEAD WITHOUT CONTRAST CT FACIAL BONES WITHOUT CONTRAST CT CERVICAL SPINE WITHOUT CONTRAST CLINICAL INFORMATION: Syncope. Head strike. COMPARISON: None available. TECHNIQUE: Contiguous axial imaging was performed through the head, facial bones and cervical spine without intravenous administration of contrast. This CT examination was performed using dose optimization techniques as appropriate, variously including the following: *Automated exposure control *Adjustment of mA and/or kV according to patient size (this includes techniques or standardized protocols for targeted exams where dose is matched to indication/reason for exam; i.e. extremities or head) *Use of iterative reconstruction technique DLP: 1326 mGy-cm FINDINGS: The lateral, third and the fourth ventricles are normally outlined. The cortical sulci and basal cisterns are normally outlined as well. There is no acute territorial defect, hemorrhage or midline shift. The extra-axial spaces are unremarkable. Calvarium: Intact. Maxilla facial sinuses and mastoids: Clear as visualized. Facial bones: Motion slightly limits evaluation of the facial bones. No fracture seen. There is right maxillary dental disease with periapical lucency. There is apparent labial soft tissue swelling with a linear radiopaque structure within the lower lip measuring approximately 4 mm. Cervical spine: The alignment is within normal limits. The disc spaces are maintained. The bone mineralization is normal. There is no fracture. The soft tissues are unremarkable. The visualized upper lung dewitt are clear. CT/CT cervical spine wo IV con IMPRESSION: No acute intracranial abnormality. Unremarkable cervical spine CT. Motion limits evaluation of the facial bones. Maxillary dental disease. No acute fracture. There appears to be labial soft tissue swelling with a possible lower labial foreign body measuring 4 mm.
--- NOTE | ~2023-02-05 | CT_ITS ---
EXAMINATION: CT HEAD WITHOUT CONTRAST CT FACIAL BONES WITHOUT CONTRAST CT CERVICAL SPINE WITHOUT CONTRAST CLINICAL INFORMATION: Syncope. Head strike. COMPARISON: None available. TECHNIQUE: Contiguous axial imaging was performed through the head, facial bones and cervical spine without intravenous administration of contrast. This CT examination was performed using dose optimization techniques as appropriate, variously including the following: *Automated exposure control *Adjustment of mA and/or kV according to patient size (this includes techniques or standardized protocols for targeted exams where dose is matched to indication/reason for exam; i.e. extremities or head) *Use of iterative reconstruction technique DLP: 1326 mGy-cm FINDINGS: The lateral, third and the fourth ventricles are normally outlined. The cortical sulci and basal cisterns are normally outlined as well. There is no acute territorial defect, hemorrhage or midline shift. The extra-axial spaces are unremarkable. Calvarium: Intact. Maxilla facial sinuses and mastoids: Clear as visualized. Facial bones: Motion slightly limits evaluation of the facial bones. No fracture seen. There is right maxillary dental disease with periapical lucency. There is apparent labial soft tissue swelling with a linear radiopaque structure within the lower lip measuring approximately 4 mm. Cervical spine: The alignment is within normal limits. The disc spaces are maintained. The bone mineralization is normal. There is no fracture. The soft tissues are unremarkable. The visualized upper lung dewitt are clear. CT/CT facial bones wo IV con IMPRESSION: No acute intracranial abnormality. Unremarkable cervical spine CT. Motion limits evaluation of the facial bones. Maxillary dental disease. No acute fracture. There appears to be labial soft tissue swelling with a possible lower labial foreign body measuring 4 mm.
[2023-02-05 13:52] VITALS: BP 134/90; PULSE 91; RESP 17; TEMP 36.9; O2SAT 100
[2023-02-05 13:58] VITALS: BP 112/72; BP 124/75; PULSE 90; PULSE 92; RESP 14; TEMP 36.6; O2SAT 100; BMI 19.3
--- NOTE | 2023-02-05 14:38 | ECG_ITS ---
Test Reason : SYNCOPE Blood Pressure : / mmHG Vent. Rate : 085 BPM Atrial Rate : 085 BPM P-R Int : 158 ms QRS Dur : 090 ms QT Int : 326 ms P-R-T Axes : 076 072 036 degrees QTc Int : 387 ms Normal sinus rhythm Normal ECG No previous ECGs available Referred By: Generic ED Physician Electronically Signed By:CLIFTON WITT MD
[2023-02-05 15:49] VITALS: BP 134/79; PULSE 84; RESP 20; TEMP 36.8; O2SAT 98
[2023-02-05 15:58] LABS: MANUAL DIFF FLAG NO
[2023-02-05 16:00] LABS: Basophils Absolute Auto 0.1 X10*3/uL (0.0-0.2); Basophils Percent Auto 0.7 % (0-2); Eosinophils Absolute Auto 0.1 X10*3/uL (0.0-0.4); Eosinophils Percent Auto 1.2 % (0-4); Hematocrit 42.1 % (42.0-52.0); Hemoglobin 13.7 g/dl (14.0-18.0); Imm Gran Abs Auto 0.09 X10*3/uL (0.00-0.03); Imm Gran Pct Auto 0.8 % (0.0-0.4); Lymphocytes Absolute Auto 1.9 X10*3/uL (1.2-4.9); Lymphocytes Percent Auto 16.2 % (20-40); Mean Corpuscular HGB Conc 32.5 g/dl (31.0-36.0); Mean Corpuscular Hemoglobin 28.8 pg (27.0-33.0); Mean Corpuscular Volume 88.4 fL (80.0-98.0); Mean Platelet Volume 9.8 fL (9.4-12.4); Monocytes Percent Auto 8.1 % (2-11); Neutrophils Absolute Auto 8.6 x10*3/uL (2.0-8.3); Platelet Count 329 X10*3/uL (160-400); Red Blood Count 4.76 X10*6/uL (4.60-5.80); Red Cell Distribution Width 14.5 % (11.0-16.0); White Blood Count 11.7 X10*3/uL (4.8-10.8)
[2023-02-05 16:16] LABS: Alanine Aminotransferase 149 U/L (0-40); Albumin Level 3.8 g/dL (3.5-5.0); Alkaline Phosphatase 82 U/L (39-117); Anion Gap 15 (12-20); Aspartate Amino Transferase 116 U/L (5-37); Bilirubin Direct < 0.2 mg/dL (0.0-0.5); Bilirubin Total 0.2 mg/dL (0.0-1.0); Blood Urea Nitrogen 12 mg/dL (9-16); Calcium 9.5 mg/dL (8.4-10.2); Carbon Dioxide 24 mmol/L (22-29); Chloride 104 mmol/L (96-108); Creatinine Clr Calc Pharmacy 113.8; Estimated Glomerular Filt Rate > 60; Ethanol < 10 mg/dL; Glucose Random 99 mg/dL (60-115); Lipase 18 U/L (8-78); Potassium 4.7 mmol/L (3.3-5.1); Sodium 138 mmol/L (135-145); Total Protein 8.4 g/dL (6.5-8.0)
[2023-02-05 16:23] LABS: Troponin-I High Sensitivity < 2.7 ng/L (<3.5-35.0)
[2023-02-05 16:29] LABS: Appearance Urine Clear; Color Urine Yellow; Glucose Urine UA Negative (Negative); Leukocyte Esterase Urine Negative (Negative); Nitrite Urine Negative (Negative); PH 6.5 (5.0-9.0); Specific Gravity - Urine 1.015 (1.005-1.025); Urine Blood Negative (Negative); Urine Ketones Negative (Negative); Urine Protein Negative (Neg-Trace)
[2023-02-05 16:37] LABS: Amphetamine Screen Urine Not Detected (Not Detect); Barbiturates, Urine Not Detected (Not Detect); Benzodiazepines Screen Urine Not Detected (Not Detect); Cannabinoid Screen Urine Not Detected (Not Detect); Cocaine Screen Urine Not Detected (Not Detect); Fentanyl, urine Not Detected (Not Detect); Opiate Screen Urine Not Detected (Not Detect); Phencyclidine Screen Urine Not Detected (Not Detect)
[2023-02-05 17:39] VITALS: BP 113/77; PULSE 100; RESP 17; TEMP 36.6; O2SAT 100
--- NOTE | 2023-02-05 19:30 | ED_ITS ---
HPI - Syncope General Chief Complaint: Syncope Stated Complaint: FELL LIP BLEEDING Time Seen by Provider: 02/05/23 14:41 Source: patient and RN notes reviewed Mode of arrival: EMS Limitations: no limitations History of Present Illness HPI narrative: This is a 32-year-old male, with a history of substance abuse, presenting to the emergency department on section 21 from [facility] for evaluation of fall. Patient states that while he was in the kitchen waiting to have his breakfast, he was feeling faint, and then felt lightheaded and then fell to the ground. He states that he lost consciousness for about 2 seconds. He states that he woke up, lacerating his bottom lip. He also feels as though his front 2 teeth are loose. Patient reports that he is feeling well. He denies any chest pain or shortness of breath during these episodes. He is otherwise feeling well. He reports that his tetanus was received 2-3 years ago. He states that he has had 2 other syncopal episodes several years ago, on clear what is causing him to have these episodes. No other complaints or concerns at this time. MD complaint: loss of consciousness and felt faint Onset (ago): hour(s) -: second(s) Prodromal symptoms: lightheaded Witnessed: Yes - by Bystander Context: at rest Injuries sustained associated with event: face and mouth/tongue Current symptoms: none History: previous syncopal episode Treatments prior to arrival: none Related Data Previous Rx's Medication Instructions Recorded amoxicillin 875 mg-potassium 1 tab PO BID 7 days #14 tabs 02/05/23 clavulanate 125 mg tablet Allergies Allergy/AdvReac Type Severity Reaction Status Date / Time SEAFOOD Allergy Mild SWELLING Uncoded 01/29/23 04:11 Review of Systems 2 Review of Systems: Yes all other systems are reviewed and are negative Constitutional: Constitutional: Reports as per HPI [facility] Past Medical History Attestation statement: The following information was validated with the patient. Medical History Bizarre behavior Substance abuse Social History Social History Advance Directives: No Advance Directives Information Provided: No Physical Exam 2 Vital Signs: Vital Signs: Last Vital Signs Temp 98 F 02/05/23 17:39 Pulse 100 02/05/23 17:39 Resp 17 02/05/23 17:39 BP 113/77 02/05/23 17:39 Pulse Ox 100 02/05/23 17:39 O2 Del Method Room Air 02/05/23 17:39 BMI result Body Mass Index 19.3 Const: General: cooperative, comfortable and no acute distress O rientation/consciousness: patient oriented x3 Limitations: no limitations HEENT: Other: Right lower lip with 2 cm partial-thickness laceration to the lower external lip. No active bleeding. Front 2 teeth, right to is loose, left tooth ? May be impacted. Tenderness to palpation along these teeth. Head: Yes normal to inspection, Yes normocephalic and Yes atraumatic E ars: hearing grossly normal bilaterally General nose exam: Normal external nose present Face and sinus: Yes normal facial exam Mouth: Normal oral and palatal mucosa present, oropharynx normal and moist mucous membranes Throat: Yes posterior oropharynx normal Eyes: General: appearance normal, both eyes and all related structures E yelids: Yes eyelids normal Conjunctivae: conjunctivae normal Sclerae: s clerae normal Pupils: Equal, round and reactive pupils present EOM: EOMs intact bilaterally Neck: Neck: Yes normal visual inspection, Yes full ROM and Yes no lymphadenopathy Lymphatic: no lymphadenopathy noted Chest: Chest palpation & inspection: normal inspection of the chest Resp: Effort & Inspection: normal respiratory effort and able to speak in complete sentences Auscultation: clear to auscultation bilaterally, no crackles, no rales, no rhonchi and no wheezes Cardio: Rate: regular rate Rhythm: regular rhythm Heart sounds: S1 normal heart sound present and S2 normal heart sound present GI: Inspection: Yes normal to inspection Skin: General skin exam: no rashes or lesions noted Trauma: no lacerations or abrasions Wounds: no wounds Neuro: General: patient oriented x3 and moves all extremities Cranial nerves: Yes Equal, round and reactive pupils present Extrem: General: Yes normal to inspection Right upper extremity: normal to inspection Left upper extremity: normal to inspection Right lower extremity: normal to inspection Left lower extremity: normal to inspection Course Reevaluation(s) Reevaluation #1: Labs return mildly elevated liver enzymes. Patient has no history of hepatitis, advised patient to follow primary care physician. Patient understands and agrees with plan. CT head, shows no intracranial abnormality, unremarkable cervical spine CT, maxillary dental disease seen. Labial soft tissue swelling with possible lower labial foreign body measuring 4 mm, this is indicative of where the lip laceration is. No foreign body was seen during suture repair. Lip laceration was closed using 3 6 0 nylon sutures. Dental putty also applied to two front teeth by Dr. Hooper. See procedure note for further detail. Given workup today, patient is stable and can return back to [facility]. Stressed the importance of following up with a dentist. Patient understands and agrees with plan. Stable for discharge. Medications Administered Discontinued Medications Generic Name Dose Route Start Last Admin Trade Name Freq PRN Reason Stop Dose Admin Lidocaine HCl 5 ml 02/05/23 18:44 02/05/23 19:35 Lidocaine Hcl 1 % Mpf 5 Ml Vial INFILTRATI 02/05/23 18:45 5 ml ONCE ONE Administration Medical Decision Making Medical Decision Making [facility] Narrative: 32-year-old male presenting to the emergency department due to unwitnessed fall at [facility]. Patient is here on a section 21. 1-1 placed at bedside. On arrival, vital signs within normal limits. EKG normal sinus rhythm with at a ventricular rate of 85 beats per minute, WA interval 158, QTC 387, no ST elevation or depression. Patient has loose dentition, and lip laceration. Given syncopal episode will obtain full workup. Differential diagnoses include arrhythmia, ICH, intracranial mass, vasovagal, hypoglycemia. Plan: Labs, EKG, CT head, face, cervical spine. Differential Diagnosis Differential Diagnoses: The differential diagnosis associated with the presentation includes Admission/Observation Consideration of admission/observation: Escalation of care including admission/observation considered Escalation of care including admission observation was considered given syncopal episode and head strike. Workup today does not qualify for admission at this time. Lab Data [facility] Lab Attestation statement: I reviewed the patient's lab results. No leukocytosis, mildly elevated liver enzymes. Patient has no history of hepatitis, advised patient to follow primary care physician. Patient understands and agrees with plan. 02/05/23 15:54 02/05/23 15:54 Labs: Lab Results 02/05/23 02/05/23 Range/Units 15:54 16:19 WBC 11.7 H (4.8-10.8) X10*3/uL RBC 4.76 (4.60-5.80) X10*6/uL Hgb 13.7 L (14.0-18.0) g/dl Hct 42.1 (42.0-52.0) % MCV 88.4 (80.0-98.0) fL MCH 28.8 (27.0-33.0) pg MCHC 32.5 (31.0-36.0) g/dl RDW 14.5 (11.0-16.0) % Plt Count 329 D (160-400) X10*3/uL MPV 9.8 (9.4-12.4) fL Immature Gran % (Auto) 0.8 H (0.0-0.4) % Neut % (Auto) 73.0 (45-73) % Lymph % (Auto) 16.2 L (20-40) % Wake % (Auto) 8.1 (2-11) % Eos % (Auto) 1.2 (0-4) % Baso % (Auto) 0.7 (0-2) % Lymph # (Auto) 1.9 (1.2-4.9) X10*3/uL Wake # (Auto) 1.0 (0.1-1.2) X10*3/uL Eos # (Auto) 0.1 (0.0-0.4) X10*3/uL Baso # (Auto) 0.1 (0.0-0.2) X10*3/uL Abs Immat Gran (auto) 0.09 H (0.00-0.03) X10*3/uL Absolute Neuts (auto) 8.6 H (2.0-8.3) x10*3/uL Absolute Nucleated RBC 0.000 (0.0-0.012) X10*3/uL Nucleated RBC % (auto) 0.0 (0.0-0.2) /100WBC Sodium 138 (135-145) mmol/L Potassium 4.7 (3.3-5.1) mmol/L Chloride 104 (96-108) mmol/L Carbon Dioxide 24 (22-29) mmol/L Anion Gap 15 (12-20) BUN 12 (9-16) mg/dL Creatinine 0.79 (0.5-1.4) mg/dL Estim Creat Clear Calc 113.8 Estimated GFR > 60 Random Glucose 99 (60-115) mg/dL Calcium 9.5 (8.4-10.2) mg/dL Magnesium 2.0 (1.6-2.6) mg/dL Total Bilirubin 0.2 (0.0-1.0) mg/dL Direct Bilirubin < 0.2 (0.0-0.5) mg/dL AST 116 H (5-37) U/L ALT 149 H (0-40) U/L Alkaline Phosphatase 82 (39-117) U/L Troponin I High Sens < 2.7 (<3.5-35.0) ng/L Total Protein 8.4 H (6.5-8.0) g/dL Albumin 3.8 (3.5-5.0) g/dL Lipase 18 (8-78) U/L Urine Color Yellow Urine Appearance Clear Urine pH 6.5 (5.0-9.0) Ur Specific [place] 1.015 (1.005-1.025) Urine Protein Negative (Neg-Trace) mg/dL Urine Glucose (UA) Negative (Negative) mg/dL Urine Ketones Negative (Negative) mg/dL Urine Blood Negative (Negative) Urine Nitrite Negative (Negative) Ur Leukocyte Esterase Negative (Negative) Urine Opiates Screen Not Detected (Not Detect) Urine Fentanyl Screen Not Detected (Not Detect) Ur Barbiturates Screen Not Detected (Not Detect) Ur Phencyclidine Scrn Not Detected (Not Detect) Ur Amphetamines Screen Not Detected (Not Detect) U Benzodiazepines Scrn Not Detected (Not Detect) Urine Cocaine Screen Not Detected (Not Detect) U Marijuana (THC) Screen Not Detected (Not Detect) Ethyl Alcohol < 10 mg/dL Radiology Impression Discussion of test interpretation with radiology: I have reviewed the radiologist's reading. External Record Review External record reviewed: Inpatient record, Office record, Outpatient record, Prior outpatient labs, Prior outpatient radiology, Primary care record and Outside ED record Procedures Procedure Narrative Procedure Narrative: Dental putty applied to front [address] Hooper. Patient tolerated procedure well. Laceration Laceration 1: Site: lip Side (If applicable): right Size (cm): 1.5 Description: flap Depth: simple, single layer Local Anesthetic: lidocaine 1% Amount of anesthesia used (mL): 3 Pre-repair: wound explored, irrigated extensively and deep structures intact Skin layer closed with: nylon Size (cm): 6-0 Number of sutures: 3 Technique: simple, interrupted Discharge Plan Discharge Clinical Impression: Syncope, Fractured dental latter-day without loss of material, Laceration of lip Patient Disposition: [facility]fer [facility] Instructions: Syncope (ED), Acute Dental Trauma (ED), Toothache (ED) Additional Instructions: Your presenting to the emergency department after striking your face. Your labs are reassuring. We had to place putty to help stabilize the tooth. You need to follow-up with the dentist. Call tomorrow for an appointment. This needs to be an emergent appointment. You do have elevated liver enzymes, please follow-up with your primary care physician regarding this. Please have sutures removed in 5 days. You may return here or follow up with her primary care physician. Please take prescribed antibiotic as directed, complete the entire course. Take ibuprofen or Tylenol as needed for pain. If any new or worsening symptoms occur, please return for re-evaluation. Prescriptions: New amoxicillin-pot clavulanate 875-125 mg tablet 1 tab PO BID 7 Days Qty: 14 0RF Interventions: Acute Care Transfer Worksheet (ED) Last Done: 02/05/23 20:51 Discharge Date/Time: 02/05/23 20:52
[2023-02-05] MEDS: Lidocaine HCl 1 % MPF 5 ML VIAL INFILTRATI (19:35)
--- NOTE | 2023-02-05 20:19 | PC.NURSE ---
Called [facility] spoke to maricruz AUGUSTE. ambulance will bring him back. needs an emergency appointment with dentist tomorrow. sutures need to be removed in 5 days. Only lidocaine given for pain.
== END 2023-02-05 20:52 ==
PROVIDERS: Physician Assistant Medical; Emergency Provider Student in an Organized Health Care Education/Training Program
DX: R55 Syncope and collapse (principal); S01.511A Laceration without foreign body of lip, initial encounter; K08.530 Fractured dental restorative material without loss of material; W19.XXXA Unspecified fall, initial encounter; F19.10 Other psychoactive substance abuse, uncomplicated; Y93.89 Activity, other specified; Y92.040 Kitchen in boarding-house as the place of occurrence of the external cause; Y99.9 Unspecified external cause status
CPT/HCPCS: 12011; 36415; 70450; 70486; 72125; 80048; 80076; 80307; 81003; 83690; 83735; 84484; 85025; 93005; 99285

== ENCOUNTER 2023-12-13 11:25 | Outpatient (AMB) | payer OTHER, SELFPAY ==
--- NOTE | 2023-12-13 12:04 | AM.OFFWIN_ITS ---
Intake Vital Signs 12/13/23 12:05 Height 5 ft 9 in Weight 158 lb BMI 23.3 BP 108/70 Blood Pressure Location Lt brachial Position Sitting Pulse 94 Pulse Source Pulse Oximeter Temp 98.2 F Temp Source Oral Pulse Oximetry (%) 99 Oxygen Delivery Method Room Air Intake Visit Reasons: EP cyst belly Intake Note: pt c/o cyst on abdomen, ongoing Patient Tobacco Use Status: Current everyday Tobacco user Allergies SEAFOOD Allergy (Mild, Uncoded 12/13/23 12:04) SWELLING Do you need a note to return to daycare/school/sports/work: No HPI HPI Comments History of Present Illness Details Patient is a 33-year-old male complaining multiple skin abscesses which he believes started because he has a tube of chapstick that he inserted into his rectum 4 months ago. He states he never saw the tube come back out and he is concerned that it is causing problems on his skin. He states he has been x- rayed every time he goes into [facility] and leaves [facility] but it has never showed the chapstick tube. He thinks his body is reacting to it which is causing all of these abscesses. He states the abscesses start on their own and then they pop and drain and they are very painful. He states he does not have a PCP yet but he has an appointment with one in September of 2024. He denies any nausea or vomiting or fevers. But he does state he had some diarrhea earlier in the week that was forest green and then turned to a dark green and watery. [facility] Medical History Bizarre behavior Substance abuse Social History Patient Tobacco Use Status: Current everyday Tobacco user Review of Systems Const All systems reviewed & are unremarkable except as noted in HPI and below Physical Exam Vital Signs: Last Vital Signs Temp 98.2 F 12/13/23 12:05 Pulse 94 12/13/23 12:05 BP 108/70 12/13/23 12:05 Pulse Ox 99 12/13/23 12:05 Oxygen Delivery Method Room Air 12/13/23 12:05 BMI result Body Mass Index 23.3 Const General: cooperative, healthy appearing, comfortable, no acute distress and well developed Orientation/consciousness: patient oriented x3 Limitations: no limitations HEENT Head: Yes normal to inspection Ears: hearing grossly normal bilaterally General nose exam: Normal external nose present Face and sinus: Yes normal facial exam Eyes General: appearance normal, both eyes and all related structures Neck Neck: Yes normal visual inspection and Yes full ROM Resp Effort & Inspection: normal respiratory effort and able to speak in complete sentences Skin Other: right hip has 1cm round abscess with purulent drainage with surrounding induration and slight erythema Neuro General: patient oriented x3 Extrem General: Yes normal to inspection Assessment & Plan Assessment & Plan (1) Abscess: Code(s): L02.91 - Cutaneous abscess, unspecified Plan: Send prescription for doxycycline for the abscess on his hip. Did recommend if he continues to have GI symptoms and he is sure the chapstick has not expelled from his body, that he should go to the emergency department for a CT scan and further workup. Plan See above Medications: New doxycycline hyclate 100 mg PO BID 10 tabs 0RF Coding Level of Care Code New Pt Level 3 (37024) Diagnoses Abscess L02.91
[2023-12-13 12:05] VITALS: BP 108/70; PULSE 94; TEMP 36.8; O2SAT 99; BMI 23.3
== END 2023-12-13 12:59 | disposition home or self-care (01) ==
PROVIDERS: Visit Provider Physician Assistant
DX: L02.91 Cutaneous abscess, unspecified (principal)
CPT/HCPCS: 99203